=== PATIENT | female | born 1985 | race Caucasian/White ===

== ENCOUNTER 2017-09-19 09:52 | Emergency (ER) | payer MEDICAID, OTHER ==
[~2017-09-19] VITALS: Ht 167.6 cm; Wt 89.0 kg
[2017-09-19 09:56] VITALS: Ht 167.6 cm; Wt 89.0 kg
[2017-09-19] MEDS ORDERED: IBUPROFEN 800 MG TAB PO ONE (10:30)
[2017-09-19] MEDS ORDERED: LIDOCAINE 1% (MDV) 20 ML INJ SC ONE (10:30)
[2017-09-19] MEDS ORDERED: CEPH-443 PO (10:46)
[2017-09-19] MEDS ORDERED: SULF1TAB31 PO (10:46)
--- NOTE | 2017-09-19 18:07 | ERD ---
ER Documentation Chief Complaint Chief Complaint R THIGH POSSIBLE ABSCESS HPI 32-year-old female presented ED with abscess on her right thigh. Patient stated that she had a "winters" 3 days ago. She popped it. The area has becoming inflamed and painful, gradually more so. Denies fever or chills. Denies wound drainage. ROS All systems reviewed and are negative except as per history of present illness. Medications Home Meds Active Scripts Cephalexin* (Keflex*) 500 Mg Capsule, 500 MG PO QID for 7 Days, CAP Prov:MITCH GOODMAN. LABORER [employer] 09/19/17 Sulfamethoxazole/Trimethoprim* (Bactrim Ds* Tablet) 1 Each Tablet, 1 TAB PO BID , #14 TAB Prov:MITCH GOODMAN. [employer]ER [employer] 09/19/17 Allergies Allergies: Coded Allergies: iodine (Verified Allergy, Mild, 09/19/17) PMhx/Soc Hx Alcohol Use: No Hx Substance Use: No Hx Tobacco Use: No Smoking Status: Never smoker Physical Exam Vitals Vital Signs Date Time Temp Pulse Resp B/P Pulse Ox O2 Delivery O2 Flow Rate FiO2 09/19/17 09:56 98.0 80 18 144/89 98 Physical Exam General: Well-developed, well-nourished, conscious and coherent, in no distress Skin: Warm and dry without rash, good texture and turgor. A 3 x 4 cm erythematous indurated area noted on patient's proximal anterior right thigh. Tender to palpation. No tracking. Head: Normocephalic without evidence of trauma Eyes: Sclera and conjunctivae normal; pupils equal, round, and reactive to light; extraocular movements are intact Chest: Normal AP diameter. Good expansion without retractions. Nontender. Lungs are clear to auscultate bilaterally with good tidal volume Heart: Regular rate and rhythm. No murmur, rub, or gallops heard Extremities: Full range of motion. Good strength bilaterally. No clubbing, cyanosis, or edema. Peripheral pulses are intact. Sensation intact Neuro: Alert and oriented 4, GCS 15. Cranial nerves grossly intact. Motor and sensory exams nonfocal. Moves all extremities. Speech clear. Gait normal Results 24 hrs Current Medications Medications (Trade) Dose Ordered Sig/Van Route PRN Reason Start Time Stop Time Status Last Admin Dose Admin Lidocaine (Xylocaine 1% (Mdv) 20 ml) 20 ml ONCE ONCE SC 09/19/17 10:30 09/19/17 10:31 DC Ibuprofen (Motrin) 800 mg ONCE ONCE PO 09/19/17 10:30 09/19/17 10:31 DC 09/19/17 10:21 Procedures/[facility] Procedure note: Incision and Drainage Verbal consent obtained for incision and drainage of patient's abscess. The area was prepped with Betadine. Lidocaine 1% was infiltrated for local anesthesia. After appropriate anesthesia, incision was made using #11 blade. Approximately 5 mL of purulent discharge was drained from the abscess. The abscess was probed for loculation. Iodoform 1/4" packing tape was inserted into the abscess. The wound was then cleaned and dressed. Patient tolerated procedure well. No sign of systemic infection. No sign of necrotizing fasciitis. Patient appears well, stable for discharge and outpatient management. Medical decision making shared with patient and family. Education provided to patient and family. Patient and family expressed understanding of the plan. Medications on discharge: Bactrim DS, Keflex. Follow-up: Return to eating 2 days for wound check and dressing change. Disclaimer: Inadvertent spelling and grammatical errors are likely due to EHR/ dictation software use and do not reflect on the overall quality of patient care. Also, please note that the electronic time recorded on this note does not necessarily reflect the actual time of the patient encounter. Departure Diagnosis: Primary Impression: Abscess Additional Impression: Cellulitis Condition: Stable Patient Instructions: Abscess, Incision And Drainage Referrals: DOCTOR,NOT ON STAFF [facility] YOU HAVE RECEIVED A MEDICAL SCREENING EXAM AND THE RESULTS INDICATE THAT YOU DO NOT HAVE A CONDITION THAT REQUIRES URGENT TREATMENT IN THE EMERGENCY DEPARTMENT. FURTHER EVALUATION AND TREATMENT OF YOUR CONDITION CAN WAIT UNTIL YOU ARE SEEN IN YOUR DOCTORS OFFICE WITHIN THE NEXT 1-2 DAYS. IT IS YOUR RESPONSIBILITY TO MAKE AN APPOINTMENT FOR FOLOW-UP CARE. IF YOU HAVE A PRIMARY DOCTOR --you should call your primary doctor and schedule an appointment IF YOU DO NOT HAVE A PRIMARY DOCTOR YOU CAN CALL OUR PHYSICIAN REFERRAL HOTLINE AT IF YOU CAN NOT AFFORD TO SEE A PHYSICIAN YOU CAN CHOSE FROM THE FOLLOWING [facility] [address] [facility] [address] [facility] [facility] [address] [facility] [address] [facility]. [facility] [address] [facility]. [facility] [address] Additional Instructions: Return to this facility in 2 DAYS for a follow-up exam.Return sooner if your condition worsens. MITCH GOODMAN NP Sep 19, 2017 18:07
== END 2017-09-19 11:54 | disposition home or self-care (01) ==
LOC: FTE 09:52
DX: L02.415 Cutaneous abscess of right lower limb (principal); L03.115 Cellulitis of right lower limb
CPT/HCPCS: 10061; Z7502; Z7610

== ENCOUNTER 2017-09-21 11:15 | Emergency (ER) | payer OTHER ==
[~2017-09-21] VITALS: Ht 162.6 cm; Wt 87.9 kg
[~2017-09-21 11:15] MED LIST: CEPH-443 PO; SULF1TAB31 PO
[2017-09-21 11:18] VITALS: Ht 162.6 cm; Wt 87.9 kg
--- NOTE | 2017-09-21 14:17 | ERD ---
ER Documentation Chief Complaint Chief Complaint for recheck on abcess on rt groin area HPI 32-year-old female is here today for wound check. She had a abscess on her right upper thigh incised and drained here 2 days ago. Patient states that she is doing much better. The pain is nearly resolved. Denies fever or chills. ROS All systems reviewed and are negative except as per history of present illness. Medications Home Meds Active Scripts Cephalexin* (Keflex*) 500 Mg Capsule, 500 MG PO QID for 7 Days, CAP Prov:MITCH GOODMAN CODING QUALITY COORDINATOR 09/19/17 Sulfamethoxazole/Trimethoprim* (Bactrim Ds* Tablet) 1 Each Tablet, 1 TAB PO BID , #14 TAB Prov:MITCH GOODMAN CODING QUALITY COORDINATOR 09/19/17 Allergies Allergies: Coded Allergies: iodine (Verified Allergy, Mild, 09/21/17) PMhx/Soc Medical and Surgical Hx: pt denies Medical Hx, pt denies Surgical Hx Hx Alcohol Use: No Hx Substance Use: No Hx Tobacco Use: No Smoking Status: Never smoker Physical Exam Vitals Vital Signs Date Time Temp Pulse Resp B/P Pulse Ox O2 Delivery O2 Flow Rate FiO2 09/21/17 11:18 98.2 76 16 116/67 99 Physical Exam General: Well-developed, well-nourished, conscious and coherent, in no distress Skin: Warm and dry without rash, good texture and turgor. Bandage over the abscess of the right upper thigh. Head: Normocephalic without evidence of trauma Eyes: Sclera and conjunctivae normal; pupils equal, round, and reactive to light; extraocular movements are intact Chest: Normal AP diameter. Good expansion without retractions. Nontender. Lungs are clear to auscultate bilaterally with good tidal volume Heart: Regular rate and rhythm. No murmur, rub, or gallops heard Extremities: Full range of motion. Good strength bilaterally. No clubbing, cyanosis, or edema. Peripheral pulses are intact. Sensation intact Neuro: Alert and oriented 4, GCS 15. Cranial nerves grossly intact. Motor and sensory exams nonfocal. Moves all extremities. Speech clear. Gait normal Procedures/MDM Iodoform packing removed. Wounds show good healing, no more periwound erythema or tenderness. Wound shows no evidence of infection, foreign body, neurologic injury, vascular injury, open joint or tendon laceration. Patient appropriate for outpatient follow up. Disclaimer: Inadvertent spelling and grammatical errors are likely due to EHR/ dictation software use and do not reflect on the overall quality of patient care. Also, please note that the electronic time recorded on this note does not necessarily reflect the actual time of the patient encounter. Departure Diagnosis: Primary Impression: Encounter for wound re-check Condition: Stable Patient Instructions: Wound Care Additional Instructions: Call your primary care doctor TOMORROW for an appointment during the next 1 WEEK.Tell the medical secretary that you were referred from this facility.See the doctor sooner or return here if your condition worsens before your appointment time. MITCH GOODMAN NP Sep 21, 2017 14:17
== END 2017-09-21 15:12 | disposition home or self-care (01) ==
LOC: FTE 11:15
DX: Z48.01 Encounter for change or removal of surgical wound dressing (principal)
CPT/HCPCS: 99281

== ENCOUNTER 2019-01-21 06:09 | Emergency (ER) | payer BC, OTHER ==
[~2019-01-21] VITALS: Ht 165.1 cm; Wt 91.0 kg
[2019-01-21 06:11] VITALS: BP 155/86; PULSE 96; RESP 18; Ht 165.1 cm; Wt 91.0 kg
[2019-01-21] MEDS ORDERED: CIPR500T4 PO (07:03)
--- NOTE | 2019-01-21 07:26 | ERD ---
ER Documentation Chief Complaint Chief Complaint DYSURIA X'S 7 DAYS, HEMATURIA X'S 1 DAY HPI 33-year-old female presenting with dysuria times 7 days. Patient states that she is been taking Azo which is alleviated the burning however she has urinary frequency and pelvic pressure. Denies any back pain or fevers. Has noted some hematuria today. Denies medical problems. NKDA. Surgical history . Social history denies ROS All systems reviewed and are negative except as per history of present illness. Medications Home Meds Active Scripts Ciprofloxacin Hcl* (Ciprofloxacin Hcl*) 500 Mg Tablet, 500 MG PO BID for 7 Days, TAB Prov:YONATAN CRABTREE PA-C 01/21/19 Cephalexin* (Keflex*) 500 Mg Capsule, 500 MG PO QID for 7 Days, CAP Prov:MICTH GOODMAN. APPOINTMENT CLERK 09/19/17 Sulfamethoxazole/Trimethoprim* (Bactrim Ds* Tablet) 1 Each Tablet, 1 TAB PO BID, #14 TAB Prov:MITCH GOODMAN. APPOINTMENT CLERK 09/19/17 Allergies Allergies: Coded Allergies: iodine (Verified Allergy, Mild, 09/21/17) PMhx/Soc Medical and Surgical Hx: pt denies Medical Hx, pt denies Surgical Hx Hx Alcohol Use: No Hx Substance Use: No Hx Tobacco Use: No Smoking Status: Never smoker FmHx Family History: No diabetes, No coronary disease, No other Physical Exam Vitals Vital Signs Date Temp Pulse Resp B/P (MAP) Pulse Ox O2 O2 Flow FiO2 Time Delivery Rate 01/21/19 97.8 96 18 155/86 95 06:11 (109) Physical Exam GENERAL: The patient is well-appearing, well-nourished, in no acute distress CHEST: Clear to auscultation bilaterally. There are no rales, wheezes or rhonchi. HEART: Regular rate and rhythm. No murmurs, clicks, rubs or gallops. ABDOMEN:Soft, nontender and nondistended. Good bowel sounds. No rebound or guarding. No gross peritonitis. No gross organomegaly or masses. BACK: No midline or flank tenderness. Results 24 hrs Laboratory Tests Test 01/21/19 06:40 01/21/19 06:42 Bedside Urine pH (LAB) 5.5 Bedside Urine Protein (LAB) 3+ Bedside Urine Glucose (UA) Negative Bedside Urine Ketones (LAB) Trace Bedside Urine Blood 3+ Bedside Urine Nitrite (LAB) Negative Bedside Urine Leukocyte Esterase (L 3+ POC Beta HCG, Qualitative NEGATIVE Procedures/MDM MDM: 33-year-old female presenting with hematuria and urinary frequency. Patient's urine shows signs of infection. I will treat with antibiotics. I have low suspicion for pyelonephritis. I have low suspicion for acute abdominal or pelvic emergency. Patient is discharged with supportive medications and told to follow-up with primary care within 1-2 days for close evaluation. All questions answered at discharge Departure Diagnosis: Primary Impression: UTI (lower urinary tract infection) Condition: Stable Patient Instructions: Understanding Urinary Tract Infections (UTIs) Referrals: [facility] YOU HAVE RECEIVED A MEDICAL SCREENING EXAM AND THE RESULTS INDICATE THAT YOU DO NOT HAVE A CONDITION THAT REQUIRES URGENT TREATMENT IN THE EMERGENCY DEPARTMENT. FURTHER EVALUATION AND TREATMENT OF YOUR CONDITION CAN WAIT UNTIL YOU ARE SEEN IN YOUR DOCTORS OFFICE WITHIN THE NEXT 1-2 DAYS. IT IS YOUR RESPONSIBILITY TO MAKE AN APPOINTMENT FOR FOLOW-UP CARE. IF YOU HAVE A PRIMARY DOCTOR --you should call your primary doctor and schedule an appointment IF YOU DO NOT HAVE A PRIMARY DOCTOR YOU CAN CALL OUR PHYSICIAN REFERRAL HOTLINE AT IF YOU CAN NOT AFFORD TO SEE A PHYSICIAN YOU CAN CHOSE FROM THE FOLLOWING [facility] [address] [facility]. [facility] [address] [facility] [facility] [address] [facility]. [facility] [address] [facility] [facility] [address] [facility]. [facility]. [address] Additional Instructions: FOLLOW UP WITH YOUR PRIMARY CARE PHYSICIAN TOMORROW.Return to this facility if you are not improving as expected. YONATAN CRABTREE PA-C Jan 21, 2019 07:26
== END 2019-01-21 07:21 | disposition home or self-care (01) ==
LOC: FTE 06:09
DX: N39.0 Urinary tract infection, site not specified (principal); R10.2 Pelvic and perineal pain
CPT/HCPCS: 81003; 81025; 99283